=== PATIENT | male | born 1955 | race Two or more races ===

== ENCOUNTER 2023-02-24 20:26 | Inpatient (IN) | payer MEDICARE, OTHER ==
[~2023-02-24] VITALS: Ht 170.2 cm; Wt 84.4 kg
[2023-02-24 20:40] VITALS: BP 144/69; TEMP 98; O2SAT 96
[2023-02-24] MEDS ORDERED: LORAZEPAM 0.5 MG TABLET PO PRN (21:00)
[2023-02-24] MEDS ORDERED: MAG HYDROX/AL HYDROX/SIMETH 30 ML UDC PO PRN (21:00)
[2023-02-24] MEDS ORDERED: ZOLPIDEM TARTRATE 5 MG TABLET PO PRN (21:00)
[2023-02-24] MEDS ORDERED: ACETAMINOPHEN 325 MG TABLET PO PRN (21:00)
[2023-02-24] MEDS ORDERED: MAGNESIUM HYDROXIDE 30 ML UDC PO PRN (21:00)
[2023-02-24] MEDS ORDERED: BLOOD SUGAR DIAGNOSTIC 1 EACH STRIP IN ONE (21:00)
[2023-02-24] MEDS ORDERED: CLON0.5T4 PO (22:08)
[2023-02-24] MEDS ORDERED: QUET100T PO (22:08)
[2023-02-24] MEDS ORDERED: POLY17PO4 PO (22:08)
[2023-02-24] MEDS ORDERED: QUET50TA PO (22:08)
[2023-02-24] MEDS ORDERED: ROSU40TA PO (22:08)
[2023-02-24] MEDS ORDERED: FURO-144 PO (22:08)
[2023-02-24] MEDS ORDERED: TRAZ-182 PO (22:08)
[2023-02-24] MEDS ORDERED: BENZ1TAB7 PO (22:08)
[2023-02-24] MEDS: POLYETHYLENE GLYCOL 3350 17 GM POWD.PACK PO SCH (23:14)
[2023-02-25 07:32] LABS: ALBUMIN 3.5 g/dL (3.4-5.0); BILIRUBIN,TOTAL 0.5 mg/dL (0.2-1.0); CALCIUM, SERUM 8.8 mg/dL (8.5-10.1); CREATININE 0.9 mg/dL (0.6-1.3); POTASSIUM 3.9 mmol/L (3.5-5.1)
[2023-02-25 08:00] VITALS: BP 157/86; TEMP 97.9; O2SAT 98
[2023-02-25] MEDS ORDERED: BENZTROPINE MESYLATE (1 MG) 1 MG TABLET PO SCH (09:00)
[2023-02-25] MEDS: FUROSEMIDE 40 MG TABLET PO SCH (09:01)
[2023-02-25] MEDS: risperiDONE 1 MG TABLET PO SCH ×2 (12:04→16:55)
[2023-02-25] MEDS: DIVALPROEX SODIUM 250 MG TABLET.DR PO SCH ×2 (12:04→16:54)
[2023-02-25 16:00] VITALS: BP 133/90; TEMP 97.9; O2SAT 97
[2023-02-25 20:47] VITALS: BP 138/89; TEMP 97.8; O2SAT 96
[2023-02-25] MEDS: ATORVASTATIN 40 MG TABLET PO SCH (22:14)
[2023-02-25] MEDS: QUETIAPINE FUMARATE 100 MG TABLET PO SCH (22:16)
[2023-02-26 08:00] VITALS: BP 153/77; TEMP 97.7; O2SAT 98
[2023-02-26] MEDS: risperiDONE 1 MG TABLET PO SCH ×2 (08:16→16:53)
[2023-02-26] MEDS: DIVALPROEX SODIUM 250 MG TABLET.DR PO SCH ×3 (08:16→16:55)
[2023-02-26] MEDS: FUROSEMIDE 40 MG TABLET PO SCH (08:16)
[2023-02-26 16:00] VITALS: BP 156/90; TEMP 97.4; O2SAT 96
[2023-02-26 20:00] VITALS: BP 154/97; TEMP 98.1; O2SAT 98
[2023-02-26] MEDS: QUETIAPINE FUMARATE 100 MG TABLET PO SCH (21:25)
[2023-02-26] MEDS: ATORVASTATIN 40 MG TABLET PO SCH (21:25)
[2023-02-27 08:00] VITALS: BP 123/72; TEMP 98; O2SAT 97
[2023-02-27] MEDS: risperiDONE 1 MG TABLET PO SCH ×2 (08:31→17:08)
[2023-02-27] MEDS: FUROSEMIDE 40 MG TABLET PO SCH (08:31)
[2023-02-27] MEDS: DIVALPROEX SODIUM 250 MG TABLET.DR PO SCH ×3 (08:31→17:08)
[2023-02-27] MEDS: POLYETHYLENE GLYCOL 3350 17 GM POWD.PACK PO SCH (12:17)
[2023-02-27 15:40] VITALS: BP 131/75; TEMP 98.2; O2SAT 97
[2023-02-27 16:00] VITALS: BP 131/75; TEMP 98.2; O2SAT 97
[2023-02-27 20:00] VITALS: BP 138/60; TEMP 97.5; O2SAT 98
[2023-02-27] MEDS: QUETIAPINE FUMARATE 100 MG TABLET PO SCH (21:20)
[2023-02-27] MEDS: ATORVASTATIN 40 MG TABLET PO SCH (21:20)
[2023-02-28] MEDS ORDERED: DEXTROSE 50%-WATER 50 ML DISP.SYRIN IV PRN (07:30)
[2023-02-28 08:00] VITALS: BP 127/85; TEMP 98; O2SAT 95
[2023-02-28] MEDS: risperiDONE 1 MG TABLET PO SCH ×2 (08:40→16:55)
[2023-02-28] MEDS: BLOOD SUGAR DIAGNOSTIC 1 EACH STRIP IN SCH ×4 (08:40→21:14)
[2023-02-28] MEDS: DIVALPROEX SODIUM 250 MG TABLET.DR PO SCH ×3 (08:41→16:55)
[2023-02-28] MEDS: FUROSEMIDE 40 MG TABLET PO SCH (08:41)
[2023-02-28] MEDS: INSULIN REGULAR, HUMAN 100 UNIT/ML 3 ML VIAL SQ PRN ×3 (08:56→21:16)
[2023-02-28 16:00] VITALS: BP 112/64; TEMP 98.6; O2SAT 97
[2023-02-28 20:00] VITALS: BP 122/81; TEMP 98.3; O2SAT 97
[2023-02-28] MEDS: QUETIAPINE FUMARATE 100 MG TABLET PO SCH (21:11)
[2023-02-28] MEDS: ATORVASTATIN 40 MG TABLET PO SCH (21:11)
[2023-03-01 08:00] VITALS: BP 140/72; TEMP 97.6; O2SAT 94
[2023-03-01] MEDS: BLOOD SUGAR DIAGNOSTIC 1 EACH STRIP IN SCH ×4 (08:42→21:39)
[2023-03-01] MEDS: INSULIN REGULAR, HUMAN 100 UNIT/ML 3 ML VIAL SQ PRN ×3 (08:49→21:42)
[2023-03-01] MEDS: risperiDONE 1 MG TABLET PO SCH ×2 (09:00→17:00)
[2023-03-01] MEDS: FUROSEMIDE 40 MG TABLET PO SCH (09:00)
[2023-03-01] MEDS: DIVALPROEX SODIUM 250 MG TABLET.DR PO SCH ×3 (09:00→17:01)
[2023-03-01 16:00] VITALS: BP 113/75; TEMP 98; O2SAT 96
[2023-03-01 21:21] VITALS: BP 138/74; TEMP 97.8; O2SAT 97
[2023-03-01] MEDS: ZOLPIDEM TARTRATE 5 MG TABLET PO PRN (21:38)
[2023-03-01] MEDS: ATORVASTATIN 40 MG TABLET PO SCH (21:38)
[2023-03-01] MEDS: QUETIAPINE FUMARATE 100 MG TABLET PO SCH (21:39)
[2023-03-02] MEDS: BLOOD SUGAR DIAGNOSTIC 1 EACH STRIP IN SCH ×4 (07:30→21:33)
[2023-03-02 08:00] VITALS: BP 128/82; TEMP 97.8; O2SAT 96
[2023-03-02] MEDS: FUROSEMIDE 40 MG TABLET PO SCH (08:55)
[2023-03-02] MEDS: DIVALPROEX SODIUM 250 MG TABLET.DR PO SCH ×3 (08:55→16:34)
[2023-03-02] MEDS: risperiDONE 1 MG TABLET PO SCH ×3 (08:55→16:34)
[2023-03-02] MEDS: INSULIN REGULAR, HUMAN 100 UNIT/ML 3 ML VIAL SQ PRN ×4 (08:57→22:27)
[2023-03-02 16:00] VITALS: BP 141/76; TEMP 98.6; O2SAT 98
[2023-03-02 20:29] VITALS: BP 130/82; TEMP 98.7; O2SAT 96
[2023-03-02] MEDS: ATORVASTATIN 40 MG TABLET PO SCH (21:30)
[2023-03-02] MEDS: QUETIAPINE FUMARATE 100 MG TABLET PO SCH (21:30)
[2023-03-03] MEDS: LORAZEPAM 0.5 MG TABLET PO PRN (02:44)
[2023-03-03] MEDS: BLOOD SUGAR DIAGNOSTIC 1 EACH STRIP IN SCH ×4 (07:38→21:15)
[2023-03-03] MEDS: INSULIN REGULAR, HUMAN 100 UNIT/ML 3 ML VIAL SQ PRN ×4 (07:38→21:16)
[2023-03-03 08:00] VITALS: BP 112/78; TEMP 98.8; O2SAT 97
[2023-03-03] MEDS: FUROSEMIDE 40 MG TABLET PO SCH (08:02)
[2023-03-03] MEDS: risperiDONE 1 MG TABLET PO SCH ×2 (08:02→21:00)
[2023-03-03] MEDS: DIVALPROEX SODIUM 250 MG TABLET.DR PO SCH ×2 (08:02→17:08)
[2023-03-03 16:00] VITALS: BP 118/76; TEMP 97.9; O2SAT 97
[2023-03-03 20:55] VITALS: BP 120/78; TEMP 97.6; O2SAT 96
[2023-03-03] MEDS: ATORVASTATIN 40 MG TABLET PO SCH (21:00)
[2023-03-03] MEDS: DIVALPROEX SODIUM 500 MG TABLET.DR PO SCH (21:01)
[2023-03-04] MEDS: LORAZEPAM 0.5 MG TABLET PO PRN (04:17)
[2023-03-04 08:00] VITALS: BP 110/66; TEMP 98.4; O2SAT 98
[2023-03-04] MEDS: BLOOD SUGAR DIAGNOSTIC 1 EACH STRIP IN SCH ×4 (08:20→21:30)
[2023-03-04] MEDS: INSULIN REGULAR, HUMAN 100 UNIT/ML 3 ML VIAL SQ PRN ×3 (08:34→21:34)
[2023-03-04] MEDS: DIVALPROEX SODIUM 250 MG TABLET.DR PO SCH ×2 (09:43→17:28)
[2023-03-04] MEDS: risperiDONE 1 MG TABLET PO SCH ×2 (09:44→21:02)
[2023-03-04] MEDS: FUROSEMIDE 40 MG TABLET PO SCH (09:44)
[2023-03-04 20:01] VITALS: BP 142/78; TEMP 98; O2SAT 98
[2023-03-04] MEDS: ATORVASTATIN 40 MG TABLET PO SCH (21:03)
[2023-03-04] MEDS: DIVALPROEX SODIUM 500 MG TABLET.DR PO SCH (21:35)
[2023-03-05] MEDS: BLOOD SUGAR DIAGNOSTIC 1 EACH STRIP IN SCH ×4 (07:31→21:26)
[2023-03-05 08:00] VITALS: BP 119/60; TEMP 97.6; O2SAT 97
[2023-03-05] MEDS: DIVALPROEX SODIUM 250 MG TABLET.DR PO SCH ×2 (08:11→16:20)
[2023-03-05] MEDS: FUROSEMIDE 40 MG TABLET PO SCH (08:12)
[2023-03-05] MEDS: risperiDONE 1 MG TABLET PO SCH ×2 (08:12→21:02)
[2023-03-05] MEDS: INSULIN REGULAR, HUMAN 100 UNIT/ML 3 ML VIAL SQ PRN ×2 (08:14→21:30)
[2023-03-05 16:00] VITALS: BP 139/78; TEMP 97.8; O2SAT 98
[2023-03-05 20:00] VITALS: BP 112/78; TEMP 97.4; O2SAT 99
[2023-03-05] MEDS: DIVALPROEX SODIUM 500 MG TABLET.DR PO SCH (21:02)
[2023-03-05] MEDS: ATORVASTATIN 40 MG TABLET PO SCH (21:02)
[2023-03-06] MEDS: BLOOD SUGAR DIAGNOSTIC 1 EACH STRIP IN SCH ×4 (07:42→21:52)
[2023-03-06 08:00] VITALS: BP 118/77; TEMP 97.5; O2SAT 100
[2023-03-06] MEDS: INSULIN REGULAR, HUMAN 100 UNIT/ML 3 ML VIAL SQ PRN ×3 (08:01→17:36)
[2023-03-06] MEDS: DIVALPROEX SODIUM 250 MG TABLET.DR PO SCH ×2 (08:15→16:14)
[2023-03-06] MEDS: risperiDONE 1 MG TABLET PO SCH ×2 (08:15→21:13)
[2023-03-06] MEDS: FUROSEMIDE 40 MG TABLET PO SCH (08:15)
[2023-03-06 16:00] VITALS: BP 116/70; TEMP 98.1; O2SAT 96
[2023-03-06 20:00] VITALS: BP 133/74; TEMP 98; TEMP 98.1; O2SAT 98
[2023-03-06] MEDS: DIVALPROEX SODIUM 500 MG TABLET.DR PO SCH (21:14)
[2023-03-06] MEDS: ATORVASTATIN 40 MG TABLET PO SCH (21:14)
[2023-03-07] MEDS: BLOOD SUGAR DIAGNOSTIC 1 EACH STRIP IN SCH ×4 (06:56→21:13)
[2023-03-07 08:00] VITALS: BP 130/88; TEMP 97.7; O2SAT 97
[2023-03-07] MEDS: risperiDONE 1 MG TABLET PO SCH ×2 (08:23→21:13)
[2023-03-07] MEDS: DIVALPROEX SODIUM 250 MG TABLET.DR PO SCH ×2 (08:23→16:02)
[2023-03-07] MEDS: FUROSEMIDE 40 MG TABLET PO SCH (08:23)
[2023-03-07] MEDS: INSULIN REGULAR, HUMAN 100 UNIT/ML 3 ML VIAL SQ PRN ×2 (08:24→12:16)
[2023-03-07 16:02] VITALS: BP 127/77; TEMP 97.9; O2SAT 97
[2023-03-07] MEDS: DIVALPROEX SODIUM 500 MG TABLET.DR PO SCH (21:13)
[2023-03-07] MEDS: ATORVASTATIN 40 MG TABLET PO SCH (21:13)
[2023-03-08] MEDS: BLOOD SUGAR DIAGNOSTIC 1 EACH STRIP IN SCH ×4 (08:52→21:24)
[2023-03-08] MEDS: FUROSEMIDE 40 MG TABLET PO SCH (08:53)
[2023-03-08] MEDS: risperiDONE 1 MG TABLET PO SCH ×2 (08:53→21:14)
[2023-03-08] MEDS: DIVALPROEX SODIUM 250 MG TABLET.DR PO SCH ×2 (08:53→16:26)
[2023-03-08] MEDS: INSULIN REGULAR, HUMAN 100 UNIT/ML 3 ML VIAL SQ PRN ×3 (08:54→16:28)
[2023-03-08 15:54] VITALS: BP 110/70; TEMP 96.8; O2SAT 98
[2023-03-08 19:37] VITALS: BP 113/71; TEMP 98.1; O2SAT 98
[2023-03-08] MEDS: ATORVASTATIN 40 MG TABLET PO SCH (21:14)
[2023-03-08] MEDS: DIVALPROEX SODIUM 500 MG TABLET.DR PO SCH (21:14)
[2023-03-09] MEDS: BLOOD SUGAR DIAGNOSTIC 1 EACH STRIP IN SCH ×4 (07:08→21:18)
[2023-03-09 08:00] VITALS: BP 124/76; TEMP 98.7; O2SAT 97
[2023-03-09 08:05] VITALS: BP 124/76; TEMP 98.7; O2SAT 97
[2023-03-09] MEDS: risperiDONE 1 MG TABLET PO SCH ×2 (08:17→20:28)
[2023-03-09] MEDS: FUROSEMIDE 40 MG TABLET PO SCH (08:18)
[2023-03-09] MEDS: DIVALPROEX SODIUM 250 MG TABLET.DR PO SCH ×3 (08:18→16:27)
[2023-03-09] MEDS: INSULIN REGULAR, HUMAN 100 UNIT/ML 3 ML VIAL SQ PRN ×4 (08:22→21:24)
[2023-03-09 15:53] VITALS: BP 118/76; TEMP 98.1
[2023-03-09 20:00] VITALS: BP 121/70; TEMP 97.8; O2SAT 98
[2023-03-09] MEDS: DIVALPROEX SODIUM 500 MG TABLET.DR PO SCH (21:17)
[2023-03-09] MEDS: ATORVASTATIN 40 MG TABLET PO SCH (21:17)
[2023-03-10] MEDS: ZOLPIDEM TARTRATE 5 MG TABLET PO PRN (01:36)
[2023-03-10] MEDS: BLOOD SUGAR DIAGNOSTIC 1 EACH STRIP IN SCH ×4 (07:28→21:00)
[2023-03-10] MEDS: INSULIN REGULAR, HUMAN 100 UNIT/ML 3 ML VIAL SQ PRN ×3 (07:30→21:13)
[2023-03-10 08:00] VITALS: BP 122/82; TEMP 97.9; O2SAT 97
[2023-03-10] MEDS: FUROSEMIDE 40 MG TABLET PO SCH (08:21)
[2023-03-10] MEDS: DIVALPROEX SODIUM 250 MG TABLET.DR PO SCH ×3 (08:21→16:37)
[2023-03-10] MEDS: risperiDONE 1 MG TABLET PO SCH (08:21)
[2023-03-10] MEDS: OLANZAPINE ZYDIS 5 MG TAB.RAPDIS PO SCH ×2 (10:14→20:36)
[2023-03-10 16:00] VITALS: BP 121/73; TEMP 98.5; O2SAT 99
[2023-03-10] MEDS: POLYETHYLENE GLYCOL 3350 17 GM POWD.PACK PO SCH (16:38)
[2023-03-10 20:24] VITALS: BP 124/76; TEMP 98.1; O2SAT 96
[2023-03-10] MEDS: ATORVASTATIN 40 MG TABLET PO SCH (21:06)
[2023-03-10] MEDS: DIVALPROEX SODIUM 500 MG TABLET.DR PO SCH (21:06)
[2023-03-10 23:47] VITALS: BP 121/70; TEMP 98
[2023-03-11] MEDS: BLOOD SUGAR DIAGNOSTIC 1 EACH STRIP IN SCH ×4 (08:15→21:57)
[2023-03-11] MEDS: DIVALPROEX SODIUM 250 MG TABLET.DR PO SCH ×3 (08:28→17:02)
[2023-03-11] MEDS: FUROSEMIDE 40 MG TABLET PO SCH (08:29)
[2023-03-11] MEDS: OLANZAPINE ZYDIS 5 MG TAB.RAPDIS PO SCH ×3 (08:29→17:01)
[2023-03-11 09:06] VITALS: BP 121/76; TEMP 97.7; O2SAT 97
[2023-03-11 15:21] VITALS: BP 99/73; TEMP 97.7; O2SAT 99
[2023-03-11 19:53] VITALS: BP 107/69; TEMP 98.2; O2SAT 98
[2023-03-11] MEDS: ATORVASTATIN 40 MG TABLET PO SCH (21:45)
[2023-03-11] MEDS: DIVALPROEX SODIUM 500 MG TABLET.DR PO SCH (21:45)
[2023-03-12] MEDS: BLOOD SUGAR DIAGNOSTIC 1 EACH STRIP IN SCH ×4 (07:40→21:30)
[2023-03-12 08:00] VITALS: BP 115/76; TEMP 98; O2SAT 97
[2023-03-12] MEDS: DIVALPROEX SODIUM 250 MG TABLET.DR PO SCH ×3 (08:11→17:30)
[2023-03-12] MEDS: OLANZAPINE ZYDIS 5 MG TAB.RAPDIS PO SCH ×3 (08:12→17:30)
[2023-03-12] MEDS: FUROSEMIDE 40 MG TABLET PO SCH (08:12)
[2023-03-12] MEDS: INSULIN REGULAR, HUMAN 100 UNIT/ML 3 ML VIAL SQ PRN (08:42)
[2023-03-12 16:00] VITALS: BP 113/65; TEMP 98; O2SAT 98
[2023-03-12 20:34] VITALS: BP 136/74; TEMP 98.5; O2SAT 97
[2023-03-12] MEDS: DIVALPROEX SODIUM 500 MG TABLET.DR PO SCH (21:13)
[2023-03-12] MEDS: ATORVASTATIN 40 MG TABLET PO SCH (21:13)
[2023-03-13] MEDS: BLOOD SUGAR DIAGNOSTIC 1 EACH STRIP IN SCH ×4 (07:39→22:20)
[2023-03-13 08:00] VITALS: BP 132/65; TEMP 98.9; O2SAT 99
[2023-03-13] MEDS: OLANZAPINE ZYDIS 5 MG TAB.RAPDIS PO SCH ×2 (08:12→16:45)
[2023-03-13] MEDS: FUROSEMIDE 40 MG TABLET PO SCH (08:12)
[2023-03-13] MEDS: DIVALPROEX SODIUM 250 MG TABLET.DR PO SCH ×3 (08:12→16:45)
[2023-03-13] MEDS: INSULIN REGULAR, HUMAN 100 UNIT/ML 3 ML VIAL SQ PRN ×2 (11:51→17:33)
[2023-03-13 16:00] VITALS: BP 133/76; TEMP 97.5; O2SAT 100
[2023-03-13 20:00] VITALS: BP 116/72; TEMP 97.8; O2SAT 97
[2023-03-13] MEDS: ATORVASTATIN 40 MG TABLET PO SCH (21:23)
[2023-03-13] MEDS: DIVALPROEX SODIUM 500 MG TABLET.DR PO SCH (21:23)
[2023-03-14] MEDS: BLOOD SUGAR DIAGNOSTIC 1 EACH STRIP IN SCH ×4 (06:42→22:14)
[2023-03-14 08:00] VITALS: BP 123/71; TEMP 97.5; O2SAT 99
[2023-03-14] MEDS: FUROSEMIDE 40 MG TABLET PO SCH (08:05)
[2023-03-14] MEDS: DIVALPROEX SODIUM 250 MG TABLET.DR PO SCH ×3 (08:05→16:16)
[2023-03-14] MEDS: OLANZAPINE ZYDIS 5 MG TAB.RAPDIS PO SCH ×2 (08:06→16:16)
[2023-03-14] MEDS: INSULIN REGULAR, HUMAN 100 UNIT/ML 3 ML VIAL SQ PRN ×2 (11:50→17:15)
[2023-03-14 16:00] VITALS: BP 132/70; TEMP 98; O2SAT 95
[2023-03-14 20:02] VITALS: BP 117/75; TEMP 97.8; O2SAT 99
[2023-03-14] MEDS: DIVALPROEX SODIUM 500 MG TABLET.DR PO SCH (21:27)
[2023-03-14] MEDS: ATORVASTATIN 40 MG TABLET PO SCH (21:28)
[2023-03-15] MEDS: INSULIN REGULAR, HUMAN 100 UNIT/ML 3 ML VIAL SQ PRN ×4 (07:56→22:09)
[2023-03-15] MEDS: BLOOD SUGAR DIAGNOSTIC 1 EACH STRIP IN SCH ×4 (07:57→22:06)
[2023-03-15 08:00] VITALS: BP 130/72; TEMP 97.8; O2SAT 99
[2023-03-15] MEDS: DIVALPROEX SODIUM 250 MG TABLET.DR PO SCH ×3 (08:53→16:15)
[2023-03-15] MEDS: OLANZAPINE ZYDIS 5 MG TAB.RAPDIS PO SCH ×2 (08:54→16:15)
[2023-03-15] MEDS: FUROSEMIDE 40 MG TABLET PO SCH (08:54)
[2023-03-15 16:00] VITALS: BP 119/60; TEMP 98; O2SAT 97
[2023-03-15 20:47] VITALS: BP 111/70; TEMP 98; O2SAT 97
[2023-03-15] MEDS: ATORVASTATIN 40 MG TABLET PO SCH (22:01)
[2023-03-15] MEDS: DIVALPROEX SODIUM 500 MG TABLET.DR PO SCH (22:01)
[2023-03-16] MEDS: BLOOD SUGAR DIAGNOSTIC 1 EACH STRIP IN SCH ×4 (07:59→21:24)
[2023-03-16 08:00] VITALS: BP 122/77; TEMP 97.9; O2SAT 99
[2023-03-16] MEDS: FUROSEMIDE 40 MG TABLET PO SCH (08:50)
[2023-03-16] MEDS: DIVALPROEX SODIUM 250 MG TABLET.DR PO SCH ×3 (08:50→17:04)
[2023-03-16] MEDS: OLANZAPINE ZYDIS 5 MG TAB.RAPDIS PO SCH ×2 (08:50→17:04)
[2023-03-16 12:00] VITALS: BP 113/76; TEMP 97.8; O2SAT 95
[2023-03-16 16:00] VITALS: BP 113/76; TEMP 97.8; O2SAT 95
[2023-03-16 21:03] VITALS: BP 120/75; TEMP 98; O2SAT 98
[2023-03-16] MEDS: DIVALPROEX SODIUM 500 MG TABLET.DR PO SCH (21:20)
[2023-03-16] MEDS: ATORVASTATIN 40 MG TABLET PO SCH (21:20)
[2023-03-17] MEDS: ZOLPIDEM TARTRATE 5 MG TABLET PO PRN (01:20)
[2023-03-17] MEDS: BLOOD SUGAR DIAGNOSTIC 1 EACH STRIP IN SCH ×4 (07:46→22:09)
[2023-03-17 08:00] VITALS: BP 117/79; TEMP 98; O2SAT 98
[2023-03-17] MEDS: FUROSEMIDE 40 MG TABLET PO SCH (09:21)
[2023-03-17] MEDS: DIVALPROEX SODIUM 250 MG TABLET.DR PO SCH ×3 (09:21→16:41)
[2023-03-17] MEDS: OLANZAPINE ZYDIS 5 MG TAB.RAPDIS PO SCH ×2 (09:22→16:41)
[2023-03-17] MEDS: INSULIN REGULAR, HUMAN 100 UNIT/ML 3 ML VIAL SQ PRN ×2 (12:41→22:13)
[2023-03-17 16:00] VITALS: BP 116/72; TEMP 98.7; O2SAT 99
[2023-03-17 20:20] VITALS: BP 108/56; TEMP 97.4; O2SAT 97
[2023-03-17] MEDS: DIVALPROEX SODIUM 500 MG TABLET.DR PO SCH (22:03)
[2023-03-17] MEDS: ATORVASTATIN 40 MG TABLET PO SCH (22:03)
[2023-03-18 08:00] VITALS: BP 113/74; TEMP 98.6; O2SAT 99
[2023-03-18] MEDS: INSULIN REGULAR, HUMAN 100 UNIT/ML 3 ML VIAL SQ PRN ×2 (08:01→12:13)
[2023-03-18] MEDS: BLOOD SUGAR DIAGNOSTIC 1 EACH STRIP IN SCH ×2 (08:01→12:12)
[2023-03-18] MEDS: OLANZAPINE ZYDIS 5 MG TAB.RAPDIS PO SCH (08:37)
[2023-03-18] MEDS: FUROSEMIDE 40 MG TABLET PO SCH (08:37)
[2023-03-18] MEDS: DIVALPROEX SODIUM 250 MG TABLET.DR PO SCH ×2 (08:37→12:18)
== END 2023-03-18 14:30 | DRG 885 ==
LOC: GPS 20:26
PROVIDERS: ADMIT Psychiatry & Neurology Psychiatry; ATTEND Nurse Practitioner Acute Care
DX: F25.0 Schizoaffective disorder, bipolar type (principal); E11.65 Type 2 diabetes mellitus with hyperglycemia; G93.41 Metabolic encephalopathy; F39 Unspecified mood [affective] disorder; E78.5 Hyperlipidemia, unspecified; I10 Essential (primary) hypertension; F41.9 Anxiety disorder, unspecified; Z79.899 Other long term (current) drug therapy; Z86.16 Personal history of COVID-19; Z20.822 Contact with and (suspected) exposure to COVID-19; F29 Unspecified psychosis not due to a substance or known physiological condition; Z73.6 Limitation of activities due to disability
CPT/HCPCS: 36415; 74018; 80053-TC; 80061-TC; 80164-TC; 82962-TC; 87081-TC; 97110-TC; 97116-TC; J1815